=== PATIENT | female | born 1950 | race Caucasian/White ===

== ENCOUNTER 2017-09-07 12:23 | Emergency (ER) | payer MEDICARE, MEDICAID ==
[~2017-09-07] VITALS: Wt 70.9 kg
[2017-09-07] MEDS ORDERED: KETOROLAC 30 MG INJ IM STA (13:45)
--- NOTE | 2017-09-07 14:34 | ERD ---
ER Documentation Chief Complaint Chief Complaint [facility] NO KO, NO DEFORMITY (SANDY GUTIERREZ PA-C) HPI This a 66-year-old female who presents to the emergency department today complaining of right arm pain after sustaining a fall earlier today. Patient is down here visiting family for the holidays. States that she was walking down the street and tripped on some gravel. Denies any previous trauma to this right arm. (SANDY GUTIERREZ PA-C) ROS All systems reviewed and are negative except as per history of present illness. (SANDY GUTIERREZ PA-C) Medications Home Meds Active Scripts Naproxen* (Naprosyn*) 500 Mg Tablet, 500 MG PO BID Y for PAIN AND/OR INFLAMMATION, #30 TAB Prov:SANDY GUTIERREZ PA-C 09/07/17 Tramadol HCl (Tramadol HCl) 50 Mg Tablet, 50 MG PO Q4 Y for PAIN, #20 TAB Prov:SANDY GUTIERREZ PA-C 09/07/17 Allergies Allergies: Coded Allergies: No Known Allergy (Unverified , 09/07/17) PMhx/Soc Medical and Surgical Hx: pt denies Surgical Hx Hx Miscellaneous Medical Probl: Yes (DM, HLD, ) Hx Alcohol Use: No Hx Substance Use: No Hx Tobacco Use: No Smoking Status: Never smoker (SANDY GUTIERREZ PA-C) Physical Exam Vitals Vital Signs Date Time Temp Pulse Resp B/P Pulse Ox O2 Delivery O2 Flow Rate FiO2 09/07/17 12:26 97.5 87 17 180/80 97 (VIDHYA CARPENTER MD) Physical Exam Const: NAD Head: Atraumatic Eyes: Normal Conjunctiva ENT: Normal External Ears, Nose and Mouth. Neck: Full range of motion..~ No meningismus. Resp: Clear to auscultation bilaterally Cardio: Regular rate and rhythm, no murmurs Skin: Abrasions bilateral knees Back: No midline or flank tenderness MSK: Bilateral knees full active range of motion with evidence of abrasions over her patella. Right arm with no obvious deformity. Mild to moderate effusion over volar aspect of forearm. Full active range of motion at elbow and shoulder. Tenderness to palpation forearm and wrist. Pulses 2+. Distal neurovascularly intact. Neur: Awake and alert Psych: Normal Mood and Affect (SANDY GUTIERREZ PA-C) Results 24 hrs Current Medications Medications (Trade) Dose Ordered Sig/Claire Route PRN Reason Start Time Stop Time Status Last Admin Dose Admin Ketorolac Tromethamine (Toradol) 30 mg ONCE STAT IM 09/07/17 13:45 09/07/17 13:47 DC 09/07/17 14:12 (VIDHYA CARPENTER MD) Results 24 hrs DIAGNOSTIC IMAGING REPORT Patient: KRYSTLE BROWN : 1950 Age: 66 Sex: F MR #: [id number] DOS: 09/07/17 0000 Ordering MD: SANDY GUTIERREZ PA-C Location: [facility] Room/Bed: PROCEDURE: XR Forearm. CLINICAL INDICATION: Pain. TECHNIQUE: Right forearm, AP and lateral views. COMPARISON: None. FINDINGS: Bone mineralization appears decreased. There is an acute impacted, comminuted intra-articular dorsally angulated fracture of the distal right radius. There is a displaced ulnar styloid process fracture. There is ulnar positive variance. There is no joint dislocation. IMPRESSION: 1. Acute impacted, comminuted intra-articular dorsally angulated fracture of the distal right radius. 2. Displaced right ulnar styloid process fracture. RPTAT: AAEE Physician Milind Date Time Electronically viewed and signed by Charles Bruner Physician on 09/07/2017 14:51 PH/ CC: SANDY GUTIERREZ PA-C DIAGNOSTIC IMAGING REPORT Patient: KRYSTLE BROWN : 1950 Age: 66 Sex: F MR #: [id number] DOS: 09/07/17 0000 Ordering MD: SANDY GUTIERREZ PA-C Location: [facility] Room/Bed: PROCEDURE: XR Wrist. CLINICAL INDICATION: Pain status post fall. TECHNIQUE: Right wrist, 4 views. COMPARISON: Same day for radiographs. FINDINGS: Bone mineralization appears decreased. There is an acute impacted, comminuted intra-articular dorsally angulated fracture of the distal right radius. There is a displaced ulnar styloid process fracture. There is ulnar positive variance. No joint dislocation. IMPRESSION: 1. Acute impacted, comminuted intra-articular dorsally angulated fracture of the distal right radius. 2. Displaced right ulnar styloid process fracture. 3. Ulnar positive variance. RPTAT: AAEE Charles Bruner Physician Date Time Electronically viewed and signed by Charles Bruner Physician on 09/07/2017 14:53 PH/ CC: SANDY GUTIERREZ PA-C (SANDY GUTIERREZ PA-C) Procedures/MDM This is a 66-year-old female who presents to the emergency department for right arm pain after sustaining a mechanical fall earlier today in which she tripped on some gravel. On physical exam patient has some swelling over the volar aspect of her right forearm and therefore did obtain images. Patient also had abrasions on her knees however she declined images of her knees saying that they do not hurt. Per the radiology report images of the right forearm and right wrist show an acute impacted comminuted intra-articular dorsally angulated fracture of the distal right radius. There is displaced right ulnar styloid process fracture. There is ulnar positive variance. Given patient's imaging report I did place a call to the orthopedist fashion coordinator, Dr. Crockett who felt that the patient can be seen as an outpatient. Explained to him the patient is here traveling but he offered to see the patient first thing Sunday morning and he would reduce the fracture in his office. Do not feel that she needs admission at this time. Patient was given Toradol here in the emergency department. She was also placed in a splint and given a sling.. Distal neurovascularly intact pre-and post splint application. She was given a prescription for tramadol, Naprosyn and Tylenol for home. At this time the patient is stable for discharge and outpatient management. Patient should follow up with their PCP in the next 1-2 days. They may return to the emergency department sooner for any persistent or worsening of symptoms. Patient and granddaughter understood and agreed with the plan. (SANDY GUTIERREZ PA-C) note- Subjective-patient complains of right wrist pain after mechanical fall today. Agree with detailed history and physical of mid-level provider Objective-tenderness and swelling over the right distal radius area without deficits or signs of ischemia. Right wrist x-ray shows a comminuted impacted intra-articular distal radius fracture and ulnar styloid fracture. Assessment-closed right distal radius fracture comminuted impacted and intra- articular. Ulnar styloid fracture as well. No evidence of ischemia or deficits or bacterial infection. This was discussed with Dr. Crockett who will see patient in office this week. Patient was placed in right short arm splint was neurovascular intact after the splint. [id number] with orthopedics Sunday or return to ER for new or worsening, worsening pain. (VIDHYA CARPENTER MD) SANDY GUTIERREZ PA-C Sep 07, 2017 14:34 VIDHYA CARPENTER MD Sep 07, 2017 15:49
--- NOTE | 2017-09-07 14:52 | RADRPT ---
PROCEDURE: XR Forearm. CLINICAL INDICATION: Pain. TECHNIQUE: Right forearm, AP and lateral views. COMPARISON: None. FINDINGS: Bone mineralization appears decreased. There is an acute impacted, comminuted intra-articular dorsally angulated fracture of the distal rig ht radius. There is a displaced ulnar styloid process fracture. There is ulnar positive variance. There is no joint dislocation. IMPRESSION: 1. Acute impacted, comminuted intra-articular dorsally angulated fracture of the distal right radius . 2. Displaced right ulnar styloid process fracture. RPTAT: AAEE Charles Bruner Physician Date Time Electronically viewed and signed by Charles Bruner Physician on 09/07/2017 14:51 PH/
--- NOTE | 2017-09-07 14:53 | RADRPT ---
PROCEDURE: XR Wrist. CLINICAL INDICATION: Pain status post fall. TECHNIQUE: Right wrist, 4 views. COMPARISON: Same day for radiographs. FINDINGS: Bone mineralization appears decreased. There is an acute impacted, comminuted intra-articular dorsally angulated fracture of the distal rig ht radius. There is a displaced ulnar styloid process fracture. There is ulnar positive variance. No joint dislocation. IMPRESSION: 1. Acute impacted, comminuted intra-articular dorsally angulated fracture of the distal right radius . 2. Displaced right ulnar styloid process fracture. 3. Ulnar positive variance. RPTAT: AAEE Charles Bruner Physician Date Time Electronically viewed and signed by Charles Bruner Physician on 09/07/2017 14:53 PH/
[2017-09-07] MEDS ORDERED: TRAM50TA2 PO (15:41)
[2017-09-07] MEDS ORDERED: NAPR-260 PO (15:41)
== END 2017-09-07 16:01 | disposition home or self-care (01) ==
LOC: FTE 12:23
DX: S52.611A Displaced fracture of right ulna styloid process, initial encounter for closed fracture (principal); S52.501A Unspecified fracture of the lower end of right radius, initial encounter for closed fracture; E11.9 Type 2 diabetes mellitus without complications; W01.0XXA Fall on same level from slipping, tripping and stumbling without subsequent striking against object, initial encounter; Y92.9 Unspecified place or not applicable
CPT/HCPCS: 73090; 73110; 96372; 99284; J1885